=== PATIENT | female | born 1955 | race Caucasian/White ===

== ENCOUNTER 2017-06-04 06:42 | Emergency (ER) | payer OTHER ==
[2017-06-04] MEDS: MECLIZINE 12.5 MG TAB PO (09:17)
[2017-06-04] MEDS: ONDANSETRON 4 MG INJ IV (09:46)
[2017-06-04] MEDS: SOD CHLORIDE 0.9% 1,000 ML IV (09:47)
[2017-06-04] MEDS: DIPHENHYDRAMINE 50 MG INJ IV (09:47)
[2017-06-04 09:54] LABS: ADD MAN DIFF? NO
[2017-06-04 10:00] LABS: WHITE BLOOD COUNT 6.3 10^3/ul (4.8-10.8)
[2017-06-04 10:00] LABS: BASOPHILS % 0.5 % (0.0-2.0); EOSINOPHILS # 0.3 10^3/ul (0.0-0.5); HEMATOCRIT 38.2 % (37.0-47.0); HEMOGLOBIN 13.4 g/dl (12.0-16.0); LYMPHOCYTES % 32.1 % (15.0-51.0); MEAN CORPUSCULAR HEMOGLOBIN 33.1 pg (29.0-33.0); MEAN CORPUSCULAR HGB CONC 35.1 g/dl (32.0-37.0); MEAN CORPUSCULAR VOLUME 94.3 fl (82.0-101.0); MEAN PLATELET VOLUME 10.3 fl (7.4-10.4); MONOCYTE # 0.6 10^3/ul (0.3-0.9); MONOCYTES % 9.7 % (0.0-11.0); NEUTROPHIL # 3.4 10^3/ul (1.6-7.5); NEUTROPHILS % 53.2 % (39.0-77.0); PLATELET COUNT 285 10^3/UL (140-415); RED BLOOD COUNT 4.05 10^6/ul (4.20-5.40); RED CELL DISTRIBUTION WIDTH 13.5 % (11.5-14.5)
[2017-06-04 10:50] LABS: ALANINE AMINOTRANSFERASE 15 IU/L (13-69); ALBUMIN 4.2 g/dl (3.3-4.9); ALBUMIN/GLOBULIN RATIO 1.27; ALKALINE PHOSPHATASE 98 IU/L (42-121); ANION GAP 14 (8-16); ASPARTATE AMINO TRANSFERASE 41 IU/L (15-46); BILIRUBIN,INDIRECT 0.9 mg/dl (0-1.1); BILIRUBIN,TOTAL 0.9 mg/dl (0.2-1.3); BLOOD UREA NITROGEN 15 mg/dl (7-20); CALCIUM 9.3 mg/dl (8.4-10.2); CARBON DIOXIDE 27 mmol/L (21-31); CHLORIDE 105 mmol/L (97-110); CREATININE 0.57 mg/dl (0.44-1.00); GLUCOSE 88 mg/dl (70-220); POTASSIUM 4.3 mmol/L (3.5-5.1); SODIUM 142 mmol/L (135-144); TOTAL PROTEIN 7.5 g/dl (6.1-8.1)
== END 2017-06-04 13:38 | disposition home or self-care (01) ==
LOC: E/R 06:42
DX: H81.399 Other peripheral vertigo, unspecified ear (principal); R40.2142 Coma scale, eyes open, spontaneous, at arrival to emergency department; R40.2252 Coma scale, best verbal response, oriented, at arrival to emergency department; R40.2362 Coma scale, best motor response, obeys commands, at arrival to emergency department; R11.0 Nausea; J45.909 Unspecified asthma, uncomplicated; Z79.82 Long term (current) use of aspirin
CPT/HCPCS: 70450; 80053; 85025; 96374; 96375; 99285-25